=== PATIENT | male | born 1955 | race African-American/Black ===

== ENCOUNTER 2021-08-28 06:02 | Day surgery (SDC) | payer OTHER, MEDICARE ==
[2021-08-28 06:47] VITALS: BMI 31.1
[2021-08-28] MEDS ORDERED: ceFAZolin SODIUM 1 GM VIAL ONE ×2 (07:05→08:18)
[2021-08-28] MEDS ORDERED: POVIDONE-IODINE 5% OPHTHALMIC PREP 30 ML SOLUTION ONE (07:06)
[2021-08-28] MEDS ORDERED: BUPIVACAINE HCL 50 ML ONE (07:06)
[2021-08-28] MEDS ORDERED: ERYTHROMYCIN 0.5% OPHTHALMIC OINTMENT 3.5 GM TUBE ONE (07:06)
[2021-08-28] MEDS ORDERED: LIDOCAINE HCL 1%, 10 MG/ML (20ML VIAL) ONE (07:06)
[2021-08-28] MEDS ORDERED: EPINEPHrine/PF 1 MG/1 ML (1:1,000) AMPULE ONE (07:06)
[2021-08-28] MEDS ORDERED: TETRACAINE 0.5% OPHTH SOLN 2 ML BOTTLE ONE (07:06)
[2021-08-28] MEDS ORDERED: PROPOFOL 20 ML ONE ×2 (07:35→08:26)
[2021-08-28] MEDS ORDERED: MIDAZOLAM HCL 2 MG/2 ML SINGLE DOSE VIAL ONE ×2 (07:35)
[2021-08-28] MEDS ORDERED: GLYCOPYRROLATE 0.2 MG/1 ML VIAL ONE (08:18)
[2021-08-28] MEDS ORDERED: ONDANSETRON 4 MG/2 ML VIAL ONE (08:18)
[2021-08-28] MEDS ORDERED: DEXAMETHASONE SOD PHOSPHATE 4 MG/1 ML VIAL ONE (08:18)
[2021-08-28] MEDS ORDERED: oxyCODONE HCL 5 MG TABLET PO PRN (09:35)
[2021-08-28] MEDS ORDERED: ONDANSETRON 4 MG/2 ML VIAL IVPUSH PRN (09:35)
[2021-08-28] MEDS ORDERED: LACTATED RINGERS SOLUTION 1,000 ML IV SCH (09:45)
[2021-08-28] MEDS ORDERED: FENTANYL CITRATE/PF 50 MCG/ML VIAL ONE (09:50)
[2021-08-28 10:39] VITALS: TEMP 97.5
[2021-08-28 11:06] VITALS: BP 136/84; PULSE 72
== END 2021-08-28 11:08 | disposition home or self-care (01) ==
LOC: FASU 06:02
PROVIDERS: ATTEND Ophthalmology
PROC: 08N Eye, Release (ICD-10-PCS; 2021-08-28)
PROC: 08SR0ZZ Reposition Left Lower Eyelid, Open Approach (ICD-10-PCS; principal; 2021-08-28 08:16)
DX: H02.115 Cicatricial ectropion of left lower eyelid (principal)
CPT/HCPCS: 88304-TC; 94760

== ENCOUNTER 2022-12-10 06:10 | Day surgery (SDC) | payer OTHER, MEDICARE ==
[2022-12-03 13:47] VITALS: BMI 31.1
[2022-12-10] MEDS ORDERED: TETRACAINE 0.5% OPHTH SOLN 2 ML BOTTLE ONE (07:11)
[2022-12-10] MEDS ORDERED: ceFAZolin SODIUM 1 GM VIAL ONE ×2 (07:11→08:01)
[2022-12-10] MEDS ORDERED: ERYTHROMYCIN 0.5% OPHTHALMIC OINTMENT 3.5 GM TUBE ONE (07:11)
[2022-12-10] MEDS ORDERED: BUPIVACAINE HCL/PF 0.5% (5MG/ML) 10 ML VIAL ONE (07:11)
[2022-12-10] MEDS ORDERED: POVIDONE-IODINE 5% OPHTHALMIC PREP 30 ML SOLUTION ONE (07:11)
[2022-12-10] MEDS ORDERED: LIDOCAINE 1%/EPI 1:100000 (50 ML MULTI DOSE VIAL) ONE (07:11)
[2022-12-10] MEDS ORDERED: MIDAZOLAM HCL 2 MG/2 ML SINGLE DOSE VIAL ONE (07:28)
[2022-12-10] MEDS ORDERED: PROPOFOL 20 ML ONE (07:28)
[2022-12-10] MEDS ORDERED: ONDANSETRON 4 MG/2 ML VIAL ONE (07:29)
[2022-12-10] MEDS ORDERED: GLYCOPYRROLATE 0.2 MG/1 ML VIAL ONE (07:29)
[2022-12-10] MEDS ORDERED: DEXAMETHASONE SOD PHOSPHATE 4 MG/1 ML VIAL ONE (07:29)
[2022-12-10] MEDS ORDERED: ONDANSETRON 4 MG/2 ML VIAL IVPUSH PRN (09:12)
[2022-12-10] MEDS ORDERED: ACETAMINOPHEN 1000 MG/100 ML BAG IVPB ONE (09:12)
[2022-12-10] MEDS ORDERED: LACTATED RINGERS SOLUTION 1,000 ML IV SCH (09:15)
[2022-12-10 10:04] VITALS: RESP 18; TEMP 97.6
[2022-12-10 10:35] VITALS: BP 130/78; PULSE 69
== END 2022-12-10 10:35 | disposition home or self-care (01) ==
LOC: FASU 06:10
PROVIDERS: ATTEND Ophthalmology
PROC: 0HR1X73 Replacement of Face Skin with Autologous Tissue Substitute, Full Thickness, External Approach (ICD-10-PCS; 2022-12-10)
PROC: 08SR0ZZ Reposition Left Lower Eyelid, Open Approach (ICD-10-PCS; principal; 2022-12-10 07:58)
DX: H02.115 Cicatricial ectropion of left lower eyelid (principal)
CPT/HCPCS: 82962; 94760